=== PATIENT | female | born 1970 | race Native Hawaiian/Other Pacific Islander ===

== ENCOUNTER 2017-01-25 14:07 | Emergency (ER) | payer OTHER ==
[2017-01-25 14:22] VITALS: BP 134/57; PULSE 60; RESP 16; TEMP 98; O2SAT 99
--- NOTE | 2017-01-25 15:04 | ED PDOC ---
HPI: General Adult Time Seen by Provider: 01/25/17 14:45 Chief Complaint (Nursing): Upper Extremity Problem/Injury Chief Complaint (Provider): left wrist pain, right foot pain History Per: Patient Additional Complaint(s): Right-hand dominant female presents with pain to left wrist and right foot status post trip and fall yesterday. Patient denies head injury or loss of consciousness. Patient did not seek medical attention at time of injury but presents today with persistent pain and swelling. No meds taken for pain relief. Patient states she had previous injury to left wrist region several months ago and is undergoing PT for this injury. Past Medical History Reviewed: Historical Data Vital Signs: Last Vital Signs Temp 98.0 F 01/25/17 14:19 Pulse 60 01/25/17 14:19 Resp 16 01/25/17 14:19 BP 134/57 L 01/25/17 14:19 Pulse Ox 99 01/25/17 15:06 - Medical History PMH: No Chronic Diseases - Surgical History Surgical History: No Surg Hx - Family History Family History: States: No Known Family Hx - Living Arrangements Living Arrangements: With Family - Social History Current smoker - smoking cessation education provided: No Alcohol: None Drugs: Denies - Home Medications Home Medications: Ambulatory Orders Medication Instructions Recorded No Known Home Med 01/25/17 - Allergies Allergies/Adverse Reactions: Allergies Allergy/AdvReac Type Severity Reaction Status Date / Time No Known Allergies Allergy Verified 01/25/17 14:19 Review of Systems ROS Statement: Except As Marked, All Systems Reviewed And Found Negative Musculoskeletal: Positive for: Other (left wrist pain and right foot pain s/p fall yesterday) Physical Exam - Reviewed Nursing Documentation Reviewed: Yes Vital Signs Reviewed: Yes - Physical Exam Appears: Positive for: Well, Non-toxic, No Acute Distress Head Exam: Positive for: ATRAUMATIC, NORMAL INSPECTION Neck: Positive for: Painless ROM Extremity: Positive for: Other (Mild tenderness and swelling medial aspect of left wrist with full range of motion, tenderness noted to proximal aspect of left first digit with full range of motion all digits of left hand, normal capillary refill, normal distal sensation, no snuffbox tenderness; mild tenderness medial aspect of right foot with no swelling or ecchymosis, no bony deformity, nomal distal sensation, nomal capillary refill) Neurologic/Psych: Positive for: Alert, Oriented - ECG O2 Sat by Pulse Oximetry: 99 Pulse Ox Interpretation: Normal - Other Rad Left wrist and hand x-ray X-Ray: Interpreted by Me, Viewed By Me X-Ray Interpretation: no fx, no dis Right foot x-ray X-Ray: Interpreted by Me, Viewed By Me X-Ray Interpretation: no fx, no dis Medical Decision Making Medical Decision Makin46 year old with pain to left wrist/hand and right foot pain s/p fall yesterday Plan: X-ray left wrist and hand X-ray right foot Pain meds declined Patient is aware of x-ray results, all questions answered. RICE instructions given, advised NSAID's for pain. Ortho referral provided. Procedures - Splinting Pre-Made Type: velcro (Left hand and wrist - velcro thumb spica splint) Hand-Made Type: Right foot - caden wrap and ortho shoe Pre-Proc Neuro Vasc Exam: normal Post-Proc Neuro Vasc Exam: normal Disposition - Clinical Impression Clinical Impression: Foot contusion, Wrist sprain, Hand sprain - Patient ED Disposition Is Patient to be Admitted: No Counseled Patient/Family Regarding: Studies Performed, Diagnosis, Need For Followup - Disposition Referrals: Chantell Garner MD [Staff Provider] - Disposition: Routine/Home Disposition Time: 16:01 Condition: STABLE Additional Instructions: Ice, rest and elevate affected area. Over the counter motrin or tylenol for pain as needed. Follow up with orthopedist in 2-3 days. Instructions: Foot Contusion (ED), Wrist Sprain (ED), Hand Sprain (ED)
--- NOTE | 2017-01-25 15:46 | RAD ---
PROCEDURE: Left Hand Radiographs. HISTORY: Posttraumatic wrist pain. COMPARISON: None. FINDINGS: BONES: Normal. No fracture. JOINTS: Normal. No osteoarthritic changes. SOFT TISSUES: Normal. OTHER FINDINGS: None. IMPRESSION: No acute findings related to/accounting for the clinical presentation.
--- NOTE | 2017-01-25 15:46 | RAD ---
PROCEDURE: Left Wrist Radiographs. HISTORY: trauma COMPARISON: None. FINDINGS: BONES: Normal. No fracture. JOINTS: Normal. No dislocation. SOFT TISSUES: Normal. OTHER FINDINGS: None. IMPRESSION: No significant or acute findings to account for/ related to the clinical presentation.
--- NOTE | 2017-01-25 16:03 | RAD ---
PROCEDURE: Right Foot Radiographs. HISTORY: Trauma. Anatomic area of interest: Plantar aspect at the level of the metatarsals. COMPARISON: None. FINDINGS: BONES: Normal. No fracture. JOINTS: Normal. SOFT TISSUES: Normal. OTHER FINDINGS: None. IMPRESSION: No acute findings related to/accounting for the clinical presentation. Concordant results with the preliminary interpretation rendered by the emergency department physician procedure.
== END 2017-01-25 16:17 | disposition home or self-care (01) ==
LOC: H.ER 14:07
DX: S63.502A Unspecified sprain of left wrist, initial encounter (principal); S90.31XA Contusion of right foot, initial encounter; W01.0XXA Fall on same level from slipping, tripping and stumbling without subsequent striking against object, initial encounter; Y92.89 Other specified places as the place of occurrence of the external cause